=== PATIENT | male | born 1980 | race Caucasian/White ===

== ENCOUNTER 2020-12-25 14:35 | Emergency (ER) | payer OTHER ==
[~2020-12-25] VITALS: Ht 175.3 cm; Wt 83.6 kg
--- NOTE | 2020-12-25 16:37 | REP ---
INDICATION: Left sided back pain since Aug, no known inj, int numbness l. COMPARISON: None. TECHNIQUE: Axial noncontrast images of the lumbosacral spine from mid T11 through mid/distal sacrum with coronal and sagittal reformations. This CT examination was performed using the following dose reduction techniques: Automated exposure control, adjustment of mA and/or kv according to the patient's size, and use of iterative reconstruction technique. FINDINGS: Alignment and lordosis maintained. Vertebral bodies are intact. Posterior elements and spinous processes are intact. There is no evidence for acute fracture/compression injury or subluxation. No evidence for spondylolysis or spondylolisthesis. The spinal canal is patent. Very minimal disc space narrowing at L1-2, L3-4 is nonspecific. No further significant degenerative changes are identified by noncontrast CT evaluation. The paravertebral soft tissues are normal. IMPRESSION: Relatively age-appropriate normal lumbosacral spine CT. No evidence for acute fracture/compression injury or subluxation. If the patient remains symptomatic consider nonemergent outpatient MRI for further investigation of the soft tissue structures including disc spaces and associated exiting nerve roots. <Electronically signed by Nathan Matute > 12/25/20 [id number]
[2020-12-25 17:06] VITALS: BP 118/75
== END 2020-12-25 17:07 | disposition home or self-care (01) ==
LOC: M ED 14:35
DX: R20.2 Paresthesia of skin (principal); M54.5 Low back pain; M43.22 Fusion of spine, cervical region; F17.220 Nicotine dependence, chewing tobacco, uncomplicated

== ENCOUNTER → 2022-06-22 | Outpatient (CLI) | payer OTHER | LOC: M PLAIMG 06:50 | PROVIDERS: ATTEND Physician Assistant | DX: M25.562 Pain in left knee (principal); S83.282A Other tear of lateral meniscus, current injury, left knee, initial encounter; S83.242A Other tear of medial meniscus, current injury, left knee, initial encounter; S83.512A Sprain of anterior cruciate ligament of left knee, initial encounter; M94.262 Chondromalacia, left knee; X58.XXXA Exposure to other specified factors, initial encounter; Y92.9 Unspecified place or not applicable; Y93.9 Activity, unspecified; Y99.9 Unspecified external cause status; M25.462 Effusion, left knee ==

== ENCOUNTER → 2024-01-01 | Outpatient (CLI) | payer OTHER | LOC: M SOG 12:52 | PROVIDERS: ATTEND Physician Assistant | DX: M79.645 Pain in left finger(s) (principal) ==

== ENCOUNTER → 2024-02-20 | Outpatient (CLI) | payer OTHER | LOC: M PLAIMG 08:27 | PROVIDERS: ATTEND Orthopaedic Surgery | DX: M25.561 Pain in right knee (principal) ==

== ENCOUNTER 2024-06-27 06:52 | Day surgery (SDC) | payer OTHER ==
[~2024-06-27] VITALS: Ht 175.3 cm; Wt 89.9 kg
[~2024-06-27 06:52] MED LIST: LIDOCAINE 2% 100MG/5ML SDV (FOR ANES.) As Ordered ONE; MIDAZOLAM INJ 2MG/2ML VIAL As Ordered ONE; ONDANSETRON 4MG 2ML VIAL As Ordered ONE; VASOPRESSIN INJ 20UNITS/ML 1ML VIAL As Ordered ONE; dexmedeTOMIDine (4MCG/ML)200MCG/50ML BTL (PRECEDEX) As Ordered ONE; fentaNYL 100 MCG/2 ML INJECTION As Ordered ONE; propofoL 200 MG/20 ML VIAL As Ordered ONE
[2024-06-27] MEDS ORDERED: ACETAMINOPHEN 1000MG/100ML IV BAG As Ordered ONE (06:56)
[2024-06-27] MEDS ORDERED: LR 1,000 ML IV SCH (07:15)
[2024-06-27] MEDS ORDERED: ROCURONIUM BROMIDE 50MG/5ML VIAL As Ordered ONE (07:18)
[2024-06-27] MEDS ORDERED: SUGAMMADEX SODIUM 500 MG/5 ML VIAL (BRIDION) As Ordered ONE (07:19)
[2024-06-27] MEDS: fentaNYL 100 MCG/2 ML INJECTION IV PRN (07:43)
[2024-06-27] MEDS: MIDAZOLAM INJ 2MG/2ML VIAL IV PRN (07:43)
[2024-06-27] MEDS: LIDOCAINE 1% SDV 5ML VIAL PN ONE (07:48)
[2024-06-27] MEDS: dexAMETHasone 10MG/1ML VIAL PRES.FREE PN ONE (07:48)
[2024-06-27] MEDS: ROPIvacaine 0.5% 30ML VIAL PN ONE (07:48)
[2024-06-27] MEDS: TRANEXAMIC ACID 100 MG/ML 10ML VIAL IV ONE (08:21)
[2024-06-27] MEDS: ceFAZolin SOD 2 GM in IV 1 EA IV ONE (08:21)
[2024-06-27] MEDS: EPINEPHrine 1MG/ML INJ 30ML MD-VIAL As Ordered ONE (09:00)
[2024-06-27] MEDS: TRANEXAMIC ACID 100 MG/ML 10ML VIAL As Ordered ONE (09:57)
[2024-06-27 12:10] VITALS: BP 112/66; TEMP 97.4; O2SAT 98
== END 2024-06-27 12:15 | disposition home or self-care (01) ==
LOC: M SDC 06:52
PROVIDERS: ATTEND Orthopaedic Surgery
DX: M23.611 Other spontaneous disruption of anterior cruciate ligament of right knee (principal); M94.261 Chondromalacia, right knee
CPT/HCPCS: 20680; 29881; 64447; J0131; J0171; J0665; J0690; J1100; J2250; J2405; J2598; J3010

== ENCOUNTER 2024-10-17 05:53 | Day surgery (SDC) | payer OTHER ==
[~2024-10-17] VITALS: Ht 175.3 cm; Wt 87.5 kg
[~2024-10-17 05:53] MED LIST changes: -LIDOCAINE 2% 100MG/5ML SDV (FOR ANES.) As Ordered ONE; +MELO7.5T35 PO; -MIDAZOLAM INJ 2MG/2ML VIAL As Ordered ONE; -ONDANSETRON 4MG 2ML VIAL As Ordered ONE; -VASOPRESSIN INJ 20UNITS/ML 1ML VIAL As Ordered ONE; -dexmedeTOMIDine (4MCG/ML)200MCG/50ML BTL (PRECEDEX) As Ordered ONE; -fentaNYL 100 MCG/2 ML INJECTION As Ordered ONE; -propofoL 200 MG/20 ML VIAL As Ordered ONE
[2024-10-17] MEDS ORDERED: LR 1,000 ML IV SCH ×2 (06:25→12:55)
[2024-10-17] MEDS ORDERED: fentaNYL 100 MCG/2 ML INJECTION As Ordered ONE (07:14)
[2024-10-17] MEDS ORDERED: MIDAZOLAM INJ 2MG/2ML VIAL As Ordered ONE (07:14)
[2024-10-17] MEDS ORDERED: KETOROLAC 60MG 2ML VIAL As Ordered ONE (07:15)
[2024-10-17] MEDS ORDERED: SUGAMMADEX SODIUM 500 MG/5 ML VIAL (BRIDION) As Ordered ONE (07:15)
[2024-10-17] MEDS ORDERED: ONDANSETRON 4MG 2ML VIAL As Ordered ONE (07:15)
[2024-10-17] MEDS ORDERED: ROCURONIUM BROMIDE 50MG/5ML VIAL As Ordered ONE (07:16)
[2024-10-17] MEDS ORDERED: LIDOCAINE 2% 100MG/5ML SDV (FOR ANES.) As Ordered ONE (07:16)
[2024-10-17] MEDS ORDERED: propofoL 200 MG/20 ML VIAL As Ordered ONE (07:16)
[2024-10-17] MEDS: ROPIvacaine 0.5% 30ML VIAL PN ONE (07:45)
[2024-10-17] MEDS: LIDOCAINE 1% SDV 5ML VIAL PN ONE (07:45)
[2024-10-17] MEDS: dexAMETHasone 10MG/1ML VIAL PRES.FREE PN ONE (07:45)
[2024-10-17] MEDS: MIDAZOLAM INJ 2MG/2ML VIAL IV PRN (07:47)
[2024-10-17] MEDS: fentaNYL 100 MCG/2 ML INJECTION IV PRN (07:47)
[2024-10-17] MEDS: TRANEXAMIC ACID 100 MG/ML 10ML VIAL As Ordered ONE (07:47)
[2024-10-17] MEDS: ceFAZolin SOD 2 GM in IV 1 EA IV ONE (08:07)
[2024-10-17] MEDS: TRANEXAMIC ACID 100 MG/ML 10ML VIAL IV ONE (08:11)
[2024-10-17] MEDS: EPINEPHrine 1MG/ML INJ 30ML MD-VIAL As Ordered ONE (08:53)
[2024-10-17] MEDS: BUPivacaine LIPOSOME/PF 266MG 20ML VIAL (13.3MG/ML)(EXPAREL) As Ordered ONE (08:54)
[2024-10-17] MEDS: ceFAZolin 2 GM/D5W 50 ML IV BAG As Ordered ONE (11:28)
[2024-10-17] MEDS ORDERED: ONDANSETRON 4MG 2ML VIAL IV PRN (12:55)
[2024-10-17] MEDS ORDERED: HYDROMORPHONE HCL 0.5 MG/ 0.5 ML SYRINGE IV PRN (12:55)
[2024-10-17] MEDS ORDERED: fentaNYL 100 MCG/2 ML INJECTION IV PRN (12:55)
[2024-10-17] MEDS: oxyCODONE 5MG TAB PO PRN (13:28)
[2024-10-17 14:50] VITALS: BP 119/71; TEMP 98.1; O2SAT 99
== END 2024-10-17 15:02 | disposition home or self-care (01) ==
LOC: M SDC 05:53
PROVIDERS: ATTEND Orthopaedic Surgery
DX: M23.51 Chronic instability of knee, right knee (principal); F17.220 Nicotine dependence, chewing tobacco, uncomplicated
CPT/HCPCS: 29888; 64447; 73560; 76000; C1713; J0171; J0690; J1100; J1885; J2250; J2405; J2795; J3010

== ENCOUNTER → 2025-05-26 | Outpatient (REF) | LOC: M PLAIMG 14:18 | PROVIDERS: ATTEND Internal Medicine | DX: Z01.89 Encounter for other specified special examinations (principal) ==